=== PATIENT | male | born 1960 | race Caucasian/White ===

== ENCOUNTER 2022-12-14 08:29 | Day surgery (SDC) | payer MEDICARE, BC ==
[2022-12-08 16:02] VITALS: BMI 38.2
[2022-12-14 08:54] VITALS: RESP 16; TEMP 97.5
[2022-12-14] MEDS ORDERED: LACTATED RINGERS 1,000 ML IV ONE (08:54)
[2022-12-14] MEDS ORDERED: LACTATED RINGERS 1,000 ML IV SCH (08:54)
[2022-12-14] MEDS ORDERED: LIDOCAINE 1% (10MG/ML) FOR IV START INTRADERMA PRN (08:54)
[2022-12-14] MEDS ORDERED: PROPOFOL 10 MG/ML 20 ML VIAL IV ONE (09:07)
--- NOTE | 2022-12-14 09:09 | P.GSHP ---
History of Present Illness H&P Date: 12/14/22 Chief Complaint: Colon cancer screening 62-year-old male here for colonoscopy. Last colonoscopy over 10 years ago. No bowel complaints. No family history of colon cancer. Past Medical History Past Medical History: Cancer, Diabetes Mellitus, Hyperlipidemia, Hypertension, Renal Disease, Sleep Apnea/CPAP/BIPAP Additional Past Medical History / Comment(s): COVID/stomach ulcer/skin cancer removed, CURRENTLY ON ATNITBIOTICS FOR RT FOOT WOUND-WAS ON IV ANTIBIOTICS FOR 3 WEEKS NOW ON ORAL-PT TO NOTIFY DR. JENSEN'S OFFICE History of Any Multi-Drug Resistant Organisms: None Reported Past Surgical History: Bariatric Surgery, Cholecystectomy, Heart Catheterization, Orthopedic Surgery Additional Past Surgical History / Comment(s): kidney transplant/nonfunctioning left arm fistula/lt ankle surgery/back surg L4-5. RT FOOT SX Past Anesthesia/Blood Transfusion Reactions: No Reported Reaction Smoking Status: Former smoker - Past Family History Mother Family Medical History: No Reported History Medications and Allergies Home Medications Medication Instructions Recorded Confirmed Type Atorvastatin [Lipitor] 1 tab PO DAILY 10/09/21 12/14/22 History Insulin Aspart Prot/Insuln Asp 1 dose SQ DIRECTED PRN 10/09/21 12/14/22 History [Novolog Mix 70-30 Flexpen] Sodium Bicarbonate 650 mg PO DAILY 10/09/21 12/14/22 History Tacrolimus [Prograf] 1 tab PO BID 10/09/21 12/14/22 History mycophenolate mofetiL [Cellcept] 500 mg PO BID 10/09/21 12/14/22 History Levothyroxine Sodium [Synthroid] 75 mcg PO DAILY 12/14/22 12/14/22 History Nitrofurantoin Monohyd/M-Cryst 1 tab PO TID 12/14/22 12/14/22 History [Macrobid] Allergies Allergy/AdvReac Type Severity Reaction Status Date / Time morphine AdvReac Nausea Verified 12/14/22 08:55 Surgical - Exam Vital Signs Temp Pulse Resp BP Pulse Ox 97.5 F L 71 16 175/82 96 12/14/22 08:52 12/14/22 08:52 12/14/22 08:52 12/14/22 08:52 12/14/22 08:52 Physical exam: General: Well-developed, well-nourished HEENT: Normocephalic, sclerae nonicteric Abdomen: Nontender, nondistended Extremities: No edema Neuro: Alert and oriented Assessment and Plan (1) Colon cancer screening Narrative/Plan: Will proceed with colonoscopy at this time. Current Visit: Yes Status: Acute Code(s): Z12.11 - ENCOUNTER FOR SCREENING FOR MALIGNANT NEOPLASM OF COLON SNOMED Code(s): 506917586
[2022-12-14 09:12] LABS: Glucose,Whole Blood 110 mg/dL (70-110)
--- NOTE | 2022-12-14 09:28 | P.PCN ---
Date of Procedure: 12/14/22 Procedure(s) Performed: PREOPERATIVE DIAGNOSIS: Colon cancer screening POSTOPERATIVE DIAGNOSIS: Diverticulosis PROCEDURE: Colonoscopy ANESTHESIA: MAC SURGEON: Jeffery Vance M.D. SPECIMENS: None ENDOSCOPIC PROCEDURE: The patient was placed on the endoscopy table in the left decubitus position. The Olympus colonoscope was inserted into the anus and passed under direct visualization to the base of the cecum. The appendiceal orifice was visualized. From that point the scope was slowly withdrawn inspe cting all surfaces carefully. There were no neoplastic inflammatory or polypoid lesions throughout the cecum, ascending, transverse, descending, sigmoid and rectum. There was mild left-sided diverticulosis noted with tortuosity. Digital rectal examination was normal. The patient was taken to the recovery room in stable condition per anesthesia guidelines. RECOMMENDATIONS: Resume diet. Repeat colonoscopy 10 years.
[2022-12-14 09:39] VITALS: PULSE 62
[2022-12-14 09:58] VITALS: BP 122/62
== END 2022-12-14 10:30 | disposition home or self-care (01) ==
LOC: ORWHC2ENDO 08:29
PROVIDERS: ATTEND Surgery
DX: Z12.11 Encounter for screening for malignant neoplasm of colon (principal); K57.30 Diverticulosis of large intestine without perforation or abscess without bleeding; I10 Essential (primary) hypertension; E78.5 Hyperlipidemia, unspecified; E11.9 Type 2 diabetes mellitus without complications; G47.33 Obstructive sleep apnea (adult) (pediatric); Z90.49 Acquired absence of other specified parts of digestive tract; Z94.0 Kidney transplant status; Z87.891 Personal history of nicotine dependence; Z79.624 Long term (current) use of inhibitors of nucleotide synthesis; Z79.890 Hormone replacement therapy; Z79.899 Other long term (current) drug therapy
CPT/HCPCS: 45378; J2704